=== PATIENT | male | born 1990 | race Two or more races ===

== ENCOUNTER 2017-03-30 17:58 | Emergency (ER) | payer OTHER ==
[~2017-03-30] VITALS: Ht 172.7 cm; Wt 63.5 kg
[2017-03-30 18:04] VITALS: BP 118/78
[2017-03-30] MEDS ORDERED: IBUPROFEN600 MG ORAL (21:03)
[2017-03-30] MEDS ORDERED: ROBAXIN-750750 MG PO (21:03)
[2017-03-30 21:25] VITALS: BP 116/72
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
== END 2017-03-30 21:32 | disposition home or self-care (01) ==
LOC: EDBD 17:58 → EMR 19:16
DX: M62.838 Other muscle spasm (principal); V49.50XA Passenger injured in collision with unspecified motor vehicles in traffic accident, initial encounter; Y92.410 Unspecified street and highway as the place of occurrence of the external cause
CPT/HCPCS: 72125; 99284

== ENCOUNTER 2020-05-28 19:09 | Emergency (ER) | payer OTHER ==
[~2020-05-28] VITALS: Ht 172.7 cm; Wt 68.0 kg
[~2020-05-28 19:09] MED LIST: IBUPROFEN600 MG ORAL; ROBAXIN-750750 MG PO
[2020-05-28 19:30] VITALS: BP 132/90
[2020-05-28] MEDS ORDERED: HYDROcodone/Acetamin 5/325 tab ORAL ONE (19:30)
--- NOTE | 2020-05-28 20:03 | Diagnostic Imaging Report ---
EXAM: CT Lumbar Spine Without Intravenous Contrast CLINICAL HISTORY: PAIN TECHNIQUE: Axial computed tomography images of the lumbar spine without intravenous contrast. CTDI is 7.1 mGy and DLP is 249 mGy-cm. One or more of the following dose reduction techniques were used: automated exposure control, adjustment of the mA and/or kV according to patient size, use of iterative reconstruction technique. COMPARISON: None FINDINGS: Vertebrae: Unremarkable. No acute fracture. Discs/spinal canal/neural foramina: No acute findings. No spinal canal stenosis. Soft tissues: Unremarkable. IMPRESSION: There are no acute fractures or dislocations of the lumbar spine.
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
[2020-05-28] MEDS ORDERED: ROBAXIN-750750 MG PO (21:10)
[2020-05-28] MEDS ORDERED: TYLENOL EXTRA500 MG ORAL (21:10)
[2020-05-28 21:22] VITALS: BP 128/88
--- NOTE | 2020-05-29 10:54 | Diagnostic Imaging Report ---
INDICATION: Pain TECHNIQUE: Multiple views of the right hand were obtained COMPARISON: None FINDINGS: There is no acute fracture or dislocation. Joint spaces are maintained. No acute soft tissue abnormality. IMPRESSION: No acute fracture or dislocation.
== END 2020-05-28 21:22 | disposition home or self-care (01) ==
LOC: EMR 19:52
DX: S60.221A Contusion of right hand, initial encounter (principal); S39.012A Strain of muscle, fascia and tendon of lower back, initial encounter; V43.52XA Car driver injured in collision with other type car in traffic accident, initial encounter; Y92.410 Unspecified street and highway as the place of occurrence of the external cause
CPT/HCPCS: 72131; 99284